=== PATIENT | female | born 1965 | race Asian ===

== ENCOUNTER 2019-05-16 10:29 | Emergency (ER) | payer OTHER ==
[~2019-05-16] VITALS: Ht 160 cm; Wt 108.9 kg
--- NOTE | 2019-05-16 10:30 | NUR ---
PATIENT CALLED, IN BATHROOM
--- OUTSIDE RECORDS SUMMARY | 2019-05-16 10:32 | XMS REPORT ---
Author Author Ham Souza Organization [employer] Address Unknown Phone Unavailable Care Team Providers Care Heating Equipment Repairer Name Role Phone Ham Souza CP Unavailable Allergies, Adverse Reactions, Alerts Substance Reaction Event Type N.K.D.A. Info Not Available Non Drug Allergy Problems Problem Type Condition Code Onset Dates Condition Status Problem Polyarthralgia M25.50 Active Problem Polyarthritis M13.0 Active Problem Neck pain M54.2 Active Assessment Polyarthritis M13.0 Active Assessment Polyarthralgia M25.50 Active Medications Medication Code System Code Instructions Start Date End Date Status Dosage Vitamin D3 ND 21222504728 2000 UNIT Orally Once a day Active 1 capsule Calcium ND 02462266782 600 MG Orally Twice a day Active 1 tablet with meals Meloxicam ND 55764964547 15 MG Orally Once a day with food Dec 07, 2017 April 06, 2018 Active 1 tablet Tylenol Extra Strength ND 56353303098 500 MG Orally every 6 hrs Active 2 tablets as needed Fish Oil ND 34543918785 1000 MG Orally Once a day Active 1 capsule Glucosamine HCl ND 50110727256 1500 MG Orally Once a day Active 1 tablet Levothyroxine Sodium ND 42700041893 100 MCG Orally Once a day Active 1 tablet on an empty stomach in the morning Lisinopril ND 99247594005 20 MG Orally Once a day Active 1 tablet Lisinopril-Hydrochlorothiazide ND 67457306729 20-25 MG Orally Once a day Active 1 tablet Multi Vitamin ND 95075290776 - Orally Once a day Active 1 tablet Vital Signs Date/Time: Dec 07, 2017 BMI 41.80 Index Weight 236 lbs Height 63 in Temperature 98.2 F Cardiac Monitoring Heart Rate 60 /min Blood Pressure Diastolic 88 mm Hg Blood Pressure Systolic 132 mm Hg Results No Known Results Summary Purpose [employer]ClinicalWorks Submission
--- OUTSIDE RECORDS SUMMARY | 2019-05-16 10:32 | XMS REPORT ---
Author Author [facility] Address Unknown Phone Unavailable Care Team Providers Care Wealth Management Manager Name Role Phone Unavailable Unavailable Payers Payer Name Policy Type Policy Number Effective Date Expiration Date Problems This patient has no known problems. Allergies, Adverse Reactions, Alerts This patient has no known allergies or adverse reactions. Medications This patient has no known medications.
--- OUTSIDE RECORDS SUMMARY | 2019-05-16 10:32 | XMS REPORT ---
Author Author Ham Souza Organization [employer] Address Unknown Phone Unavailable Care Team Providers Care Insurance Territory Manager Name Role Phone Ham Souza CP Unavailable Allergies No Known Allergies Problems Problem Type Condition Code Onset Dates Condition Status Problem Swelling of knee joint, left M25.462 Active Problem Neck pain M54.2 Active Problem Psoriasis L40.9 Active Problem Polyarthritis M13.0 Active Problem Polyarthralgia M25.50 Active Medications No Known Medications Results No Known Results Summary Purpose [employer] Submission
--- OUTSIDE RECORDS SUMMARY | 2019-05-16 10:32 | XMS REPORT ---
Author Author Ham Souza [facility] [employer] Address Unknown Phone Unavailable Care Team Providers Care Band Leader Name Role Phone Ham Souza Unavailable Allergies, Adverse Reactions, Alerts Substance Reaction Event Type N.K.D.A. Info Not Available Non Drug Allergy Problems Problem Type Condition Code Onset Dates Condition Status Assessment Psoriasis L40.9 Active Assessment Polyarthralgia M25.50 Active Assessment Neck pain M54.2 Active Assessment Swelling of knee joint, left M25.462 Active Problem Swelling of knee joint, left M25.462 Active Problem Neck pain M54.2 Active Problem Psoriasis L40.9 Active Assessment Polyarthritis M13.0 Active Problem Polyarthritis M13.0 Active Problem Polyarthralgia M25.50 Active Medications Medication Code System Code Instructions Start Date End Date Status Dosage Calcium ND 34016002435 600 MG Orally Twice a day Active 1 tablet with meals Vitamin D3 ND 15219135718 2000 UNIT Orally Once a day Active 1 capsule Tylenol Extra Strength ND 70842165696 500 MG Orally every 6 hrs Active 2 tablets as needed Meloxicam ND 83247108953 15 MG Orally Once a day with food Active 1 tablet Lisinopril-Hydrochlorothiazide ND 28675310400 20-25 MG Orally Once a day Active 1 tablet Allopurinol ND 82520805466 100 MG Orally Once a day Active 1 tablet Levothyroxine Sodium ND 41955331719 112 MCG Orally Once a day Active 1 tablet on an empty stomach in the morning Glucosamine HCl ND 19811087046 1500 MG Orally Once a day Active 1 tablet Multi Vitamin ND 04525727820 - Orally Once a day Active 1 tablet Fish Oil ND 04414082854 1000 MG Orally Once a day Active 1 capsule Cyclobenzaprine HCl ND 87648367315 5 MG Orally Three times a day Active 1 tablet as needed Lisinopril ND 39440377962 20 MG Orally Once a day Active 1 tablet Vital Signs Date/Time: Sep 17, 2018 BMI 41.27 Index Weight 233 lbs Height 63 in Temperature 98.6 F Cardiac Monitoring Heart Rate 68 /min Blood Pressure Diastolic 68 mm Hg Blood Pressure Systolic 112 mm Hg Results No Known Results Summary Purpose [employer]ClinicalWorks Submission
--- OUTSIDE RECORDS SUMMARY | 2019-05-16 10:32 | XMS REPORT ---
Author Ham Ham [facility] e[employer] Address Unknown Phone Unavailable Care Team Providers Care Striker Off Name Role Phone Ham Souza Unavailable Allergies, Adverse Reactions, Alerts Substance Reaction Event Type N.K.D.A. Info Not Available Non Drug Allergy Problems Problem Type Condition Code Onset Dates Condition Status Problem Polyarthralgia M25.50 Active Problem Polyarthritis M13.0 Active Problem Neck pain M54.2 Active Assessment Neck pain M54.2 Active Assessment Polyarthritis M13.0 Active Assessment Polyarthralgia M25.50 Active Medications Medication Code System Code Instructions Start Date End Date Status Dosage Allopurinol ND 63753424807 100 MG Orally Once a day Active 1 tablet Vitamin D3 ND 55094852286 2000 UNIT Orally Once a day Active 1 capsule Cyclobenzaprine HCl ND 87259732277 10 MG Orally q hs February 15, 2018 June 15, 2018 Active 1 tablet as needed Tylenol Extra Strength ND 17215058512 500 MG Orally every 6 hrs Active 2 tablets as needed Fish Oil ND 03381988506 1000 MG Orally Once a day Active 1 capsule Calcium ND 13863589649 600 MG Orally Twice a day Active 1 tablet with meals Glucosamine HCl ND 65277004866 1500 MG Orally Once a day Active 1 tablet Levothyroxine Sodium ND 01218042084 112 MCG Orally Once a day Active 1 tablet on an empty stomach in the morning Lisinopril ND 12690057527 20 MG Orally Once a day Active 1 tablet Lisinopril-Hydrochlorothiazide ND 89591891329 20-25 MG Orally Once a day Active 1 tablet Meloxicam ND 49488679563 15 MG Orally Once a day with food Active 1 tablet Multi Vitamin ND 33037997227 - Orally Once a day Active 1 tablet Vital Signs Date/Time: February 15, 2018 BMI 41.98 Index Weight 237 lbs Height 63 in Temperature 97.5 F Cardiac Monitoring Heart Rate 72 /min Blood Pressure Diastolic 80 mm Hg Blood Pressure Systolic 122 mm Hg Results No Known Results Summary Purpose [employer]ClinicalWorks Submission
--- OUTSIDE RECORDS SUMMARY | 2019-05-16 10:32 | XMS REPORT ---
Author Author Miguel Ángel Melissa Organization [employer] Address Unknown Phone Unavailable Care Team Providers Care Ski Lift Attendant Name Role Phone Miguel Ángel Melissa CP Unavailable Allergies No Known Allergies Problems Problem Type Condition Code Onset Dates Condition Status Problem Swelling of knee joint, left M25.462 Active Problem Neck pain M54.2 Active Problem Psoriasis L40.9 Active Problem Polyarthritis M13.0 Active Problem Polyarthralgia M25.50 Active Medications No Known Medications Results No Known Results Summary Purpose [employer]ClinicalWorks Submission
--- OUTSIDE RECORDS SUMMARY | 2019-05-16 10:32 | XMS REPORT ---
Author Author aHm Souza [facility] [place] [employer] Address Unknown Phone Unavailable Care Team Providers Care Medical Device Sales Representative Name Role Phone Ham Souza Unavailable Allergies, Adverse Reactions, Alerts Substance Reaction Event Type N.K.D.A. Info Not Available Non Drug Allergy Problems Problem Type Condition Code Onset Dates Condition Status Assessment Psoriasis L40.9 Active Assessment Polyarthralgia M25.50 Active Problem Swelling of knee joint, left M25.462 Active Problem Neck pain M54.2 Active Problem Psoriasis L40.9 Active Assessment Polyarthritis M13.0 Active Problem Polyarthritis M13.0 Active Problem Polyarthralgia M25.50 Active Medications Medication Code System Code Instructions Start Date End Date Status Dosage Levothyroxine Sodium ND 71327137263 112 MCG Orally Once a day Active 1 tablet on an empty stomach in the morning Vitamin D3 ND 59439752671 2000 UNIT Orally Once a day Active 1 capsule Multi Vitamin ND 74576794426 - Orally Once a day Active 1 tablet Eucrisa ND 76658487375 2 % Externally Twice a day Active 1 application to affected area Tumeric NDC 0 400 MG Orally Once a day Active 1 capsule Cyclobenzaprine HCl ND 93354972297 5 MG Orally Three times a day Active 1 tablet as needed Lisinopril ND 35048952662 20 MG Orally Once a day Active 1 tablet Fish Oil ND 85410250897 1000 MG Orally Once a day Active 1 capsule Calcium ND 23880796779 600 MG Orally Twice a day Active 1 tablet with meals Clobetasol Propionate ND 61410463867 0.05 % Externally Twice a day Active 1 application to affected area Meloxicam [facility] [address]-18 15 MG Orally prn Active 1 tablet Lisinopril-Hydrochlorothiazide ND 58539972541 20-25 MG Orally Once a day Active 1 tablet Vital Signs Date/Time: April 29, 2019 BMI 42.81 Index Weight 241.7 lbs Height 63 in Temperature 98.2 F Cardiac Monitoring Heart Rate 61 /min Blood Pressure Diastolic 74 mm Hg Blood Pressure Systolic 138 mm Hg Results No Known Results Summary Purpose eClinicalWorks Submission
--- OUTSIDE RECORDS SUMMARY | 2019-05-16 10:32 | XMS REPORT ---
Author Author Ham Souza Organization [employer] Address Unknown Phone Unavailable Care Team Providers Care Registered Dietitian Name Role Phone Ham Souza CP Unavailable Allergies No Known Allergies Problems Problem Type Condition Code Onset Dates Condition Status Problem Swelling of knee joint, left M25.462 Active Problem Neck pain M54.2 Active Problem Psoriasis L40.9 Active Assessment Swelling of knee joint, left M25.462 Active Problem Polyarthritis M13.0 Active Problem Polyarthralgia M25.50 Active Medications No Known Medications Results No Known Results Summary Purpose eClinicalWorks Submission
--- OUTSIDE RECORDS SUMMARY | 2019-05-16 10:32 | XMS REPORT | Continuity of Care Document ---
Author Author [facility] [employer] Address Unknown Phone Unavailable Care Team Providers Care Neurocritical Care Physician Name Role Phone [employer] Unavailable Unavailable Problems Problem Status Onset Date Classification Date Reported Comments Source Swelling of knee joint, left Active Problem 05/11/2019 Tim Souza Neck pain Active Problem 05/11/2019 Tim Souza Psoriasis Active Diagnosis 05/11/2019 Tim Souza Polyarthritis Active Diagnosis 05/11/2019 Tim Souza Polyarthralgia Active Diagnosis 05/11/2019 Tim Souza Medications Medication Details Route Status Patient Instructions Ordering Provider Order Date Source Cyclobenzaprine HCl 1 tablet as needed Orally Active 10 MG Orally q hs [place] 02/15/2018 Tim Souza Meloxicam 1 tablet Orally Active 15 MG Orally Once a day with food [place] 12/07/2017 Tim Souza Vitamin D3 1 capsule Orally Active 2000 UNIT Orally Once a day [place] Tim Souza Calcium 1 tablet with meals Orally Active 600 MG Orally Twice a day [place] Tim Souza Tylenol Extra Strength 2 tablets as needed Orally Active 500 MG Orally every 6 hrs [place] Tim Souza Fish Oil 1 capsule Orally Active 1000 MG Orally Once a day [place] Tim Souza Glucosamine HCl 1 tablet Orally Active 1500 MG Orally Once a day [place] Tim Souza Levothyroxine Sodium 1 tablet on an empty stomach in the morning Orally Active 112 MCG Orally Once a day [place] Tim Souza Lisinopril 1 tablet Orally Active 20 MG Orally Once a day [place] Tim Souza Lisinopril-Hydrochlorothiazide 1 tablet Orally Active 20-25 MG Orally Once a day [place] Tim Souza Multi Vitamin 1 tablet Orally Active - Orally Once a day [place] Tim Souza Allopurinol 1 tablet Orally Active 100 MG Orally Once a day [place] Tim Souza Meloxicam 1 tablet Orally Active 15 MG Orally Once a day with food [place] Tim Souza Cyclobenzaprine HCl 1 tablet as needed Orally Active 5 MG Orally Three times a day Souza Tim Souza Eucrisa 1 application to affected area Externally Active 2 % Externally Twice a day Souza Tim Souza Tumeric 1 capsule Orally Active 400 MG Orally Once a day Souza Tim Ramirezer Clobetasol Propionate 1 application to affected area Externally Active 0.05 % Externally Twice a day Souza Tim Ramirezer Meloxicam 1 tablet Orally Active 15 MG Orally prn Souza Tim Ramirezer Allergies, Adverse Reactions, Alerts Substance Category Reaction Severity Reaction type Status Date Reported Comments Source N.K.D.A. Adverse Reaction Info Not Available Adverse Reaction Active 04/29/2019 Tim Ramirezer Immunizations No Data Provided for This Section Results No Data Provided for This Section Pathology Reports No Data Provided for This Section Diagnostic Reports No Data Provided for This Section Consultation Notes No Data Provided for This Section Discharge Summaries No Data Provided for This Section History and Physicals No Data Provided for This Section Vital Signs Vital Sign Value Date Comments Source Weight 241.7 04/29/2019 Tim Souza Height 63 04/29/2019 Tim Souza Temperature Oral (F) 98.2 F 04/29/2019 Tim Souza Heart Rate 61 04/29/2019 Tim Souza Diastolic (mm Hg) 74 04/29/2019 Tim Souza Systolic (mm Hg) 138 04/29/2019 Tim Souza Weight 233 09/17/2018 Tim Souza Height 63 09/17/2018 Tim Souza Temperature Oral (F) 98.6 F 09/17/2018 Tim Souza Heart Rate 68 09/17/2018 Tim Souza Diastolic (mm Hg) 68 09/17/2018 Tim Souza Systolic (mm Hg) 112 09/17/2018 Tim Souza Weight 237 02/15/2018 Tim Souza Height 63 02/15/2018 Tim Souza Temperature Oral (F) 97.5 F 02/15/2018 Tim Souza Heart Rate 72 02/15/2018 Tim Souza Diastolic (mm Hg) 80 02/15/2018 Tim Souza Systolic (mm Hg) 122 02/15/2018 Tim Souza Weight 236 12/07/2017 Tim Souza Height 63 12/07/2017 Tim Souza Temperature Oral (F) 98.2 F 12/07/2017 Tim Souza Heart Rate 60 12/07/2017 Tim Souza Diastolic (mm Hg) 88 12/07/2017 Tim Souza Systolic (mm Hg) 132 12/07/2017 Tim Souza Encounters No Data Provided for This Section Procedures No Data Provided for This Section Assessment and Plan No Data Provided for This Section Plan of Care No Data Provided for This Section Social History No Data Provided for This Section Family History No Data Provided for This Section Advance Directives No Data Provided for This Section Functional Status No Data Provided for This Section
--- OUTSIDE RECORDS SUMMARY | 2019-05-16 10:32 | XMS REPORT ---
Author Author Ham Souza Organization [employer] Address Unknown Phone Unavailable Care Team Providers Care Ore Trimmer Name Role Phone Ham Souza CP Unavailable [...]
--- NOTE | 2019-05-16 13:16 | Diagnostic Imaging Report ---
Exam: Knee radiographs-3 views; left knee radiographs-3 views History: Status post fall. Comparison: None. Findings: Right knee: No evidence of acute fracture, malalignment, or soft tissue mildly. There are tricompartmental degenerative changes, moderate to severe in the patellofemoral compartment and mild in the medial and lateral compartments. Left knee: No evidence of acute fracture, malalignment, or soft tissue mildly. There are tricompartmental degenerative changes, moderate to severe in the patellofemoral compartment and mild in the medial and lateral compartments. Impression: No acute radiographic abnormality. Moderate to severe patellofemoral compartment predominant bilateral knee osteoarthritis. Signed by: Dr. Bob Barrett MD on 05/16/2019 1:13 PM
== END 2019-05-16 13:30 | disposition home or self-care (01) ==
LOC: ER 10:29
DX: M25.562 Pain in left knee (principal); M25.561 Pain in right knee; M25.512 Pain in left shoulder; M25.551 Pain in right hip; R26.2 Difficulty in walking, not elsewhere classified; W17.89XA Other fall from one level to another, initial encounter; I10 Essential (primary) hypertension; E11.9 Type 2 diabetes mellitus without complications
CPT/HCPCS: 99283

== ENCOUNTER 2020-05-31 22:47 | Emergency (ER) | payer OTHER ==
[~2020-05-31] VITALS: Ht 160 cm; Wt 108.9 kg
--- NOTE | 2020-05-31 22:54 | Emergency Department Note ---
History of Present Illnes History of Present Illness History of Present Illness This is a 54 year old female was walking down stairs with resultant R knee pain when she felt a "pop" . Arrival Mode: Car Onset (how long ago): day(s) (1) Radiation: Reports extremity Severity: mild Onset quality: sudden Duration (how long): hour(s) (1) Timing of current episode: constant Progression: unchanged Chronicity: new Context: Reports trauma/injury Relieving factors: immobilization, rest Exacerbating factors: movement Associated symptoms: Reports denies other symptoms Treatments prior to arrival: none Past Medical/Family History Physician Review I have reviewed the patient's past medical and family history. Any updates have been documented here. Past Medical History Recent Fever: No Clinical Suspicion of Infectio: No New/Unexplained Change in Ment: No Past Medical History: Hypertension, Diabetes, Osteoarthritis Other Medical History: PRE-DIABETES PSORIATIC ARTHRITIS Past Surgical History: Appendectomy Other Surgery: THYROIDECTOMY LUMPECTOMY BILAT CARAP TUNNEL Social History Smoking Cessation: Never Smoker Alcohol Use: None Any Illegal Drug Use: No Other Last Tetanus: OUT OF DATE Review of Systems Review of Systems Constitutional: Reports no symptoms EENTM: Reports no symptoms Cardiovascular: Reports no symptoms Respiratory: Reports no symptoms Gastrointestinal: Reports no symptoms Genitourinary: Reports no symptoms Musculoskeletal: Reports joint pain Integumentary: Reports no symptoms Neurological: Reports no symptoms Psychological: Reports no symptoms Endocrine: Reports no symptoms Hematological/Lymphatic: Reports no symptoms Physical Exam Related Data Allergies: Coded Allergies: No Known Allergies (Unverified , 05/16/19) Vital signs reviewed: Yes Physical Exam CONSTITUTIONAL Constitutional: Present obese HENT HENT: Present normocephalic, Present atraumatic, Present oropharynx clear/moist, Present nose normal HENT L/R: Present left ext ear normal, Present right ext ear normal EYES Eyes: Reports PERRL, Reports conjunctivae normal NECK Neck: Present ROM normal PULMONARY Pulmonary: Present effort normal, Present breath sounds normal CARDIOVASCULAR Cardiovascular: Present regular rhythm, Present heart sounds normal, Present capillary refill normal, Present normal rate GASTROINTESTINAL Abdominal: Present soft, Present nontender, Present bowel sounds normal GENITOURINARY Genitourinary: Present exam deferred SKIN Skin: Present warm, Present dry MUSCULOSKELETAL Musculoskeletal: Present tenderness (R knee) NEUROLOGICAL Neurological: Present alert, Present oriented x 3, Present no gross motor or sensory deficits PSYCHOLOGICAL Psychological: Present mood/affect normal, Present judgement normal Results Imaging Imaging results reviewed: Yes Impressions [place] [address] Patient Name: LENA STEEN MR #: [id number] : 1965 Age/Sex: 54/F Req #: [id number] Adm Physician: Ordered by: AMEE DUONG DO Report #: [id number] Location: ER Room/Bed: Procedure: [id number] DX/KNEE RIGHT THREE VIEWS Exam Date: 05/31/20 Exam Time: 2330 REPORT STATUS: Signed Exam: Right Knee Series. History: Sharp pain in right knee, no history of trauma Comparison: Right knee films 05/16/2019 Findings: 3 views of the right knee. There is normal bone mineralization. Negative for acute, displaced fracture or dislocation. Marked degenerative changes in the patellofemoral compartment, with presence of large osteophytes. Mild degenerative changes in the femorotibial compartments. No lytic or blastic lesion. Stable 7-8 mm well-corticated calcific density projecting lateral to the lateral femoral condyle. Small suprapatellar effusion. Impression: 1. No acute abnormalities 2. Marked degenerative changes in the patellofemoral compartment and mild degenerative changes in the femorotibial compartments. Signed by: Dr. Dov Esposito M.D. on 05/31/2020 11:59 PM Dictated By: DOV ESPOSITO MD [id number] Transcribed By: LOW on 05/31/20 7241 COPY TO: AMEE DUONG DO~ Assessment & Plan Medical Decision Making MDM Diff Dx : fx, dislocation, contusion, sprain, strain Assessment & Plan Final Impression: (1) Right knee pain Depart Disposition: HOME, SELF-CARE AMEE DUONG DO May 31, 2020 22:54
--- NOTE | 2020-06-01 00:03 | Diagnostic Imaging Report ---
Exam: Right Knee Series. History: Sharp pain in right knee, no history of trauma Comparison: Right knee films 05/16/2019 Findings: 3 views of the right knee. There is normal bone mineralization. Negative for acute, displaced fracture or dislocation. Marked degenerative changes in the patellofemoral compartment, with presence of large osteophytes. Mild degenerative changes in the femorotibial compartments. No lytic or blastic lesion. Stable 7-8 mm well-corticated calcific density projecting lateral to the lateral femoral condyle. Small suprapatellar effusion. Impression: 1. No acute abnormalities 2. Marked degenerative changes in the patellofemoral compartment and mild degenerative changes in the femorotibial compartments. Signed by: Dr. Saurabh Esposito M.D. on 05/31/2020 11:59 PM
== END 2020-06-01 00:19 | disposition home or self-care (01) ==
LOC: ER 23:15
DX: M25.561 Pain in right knee (principal); Y93.01 Activity, walking, marching and hiking; I10 Essential (primary) hypertension; L40.50 Arthropathic psoriasis, unspecified; E11.9 Type 2 diabetes mellitus without complications
CPT/HCPCS: 99283

== ENCOUNTER 2022-05-13 08:16 | Emergency (ER) | payer OTHER ==
[~2022-05-13] VITALS: Ht 162.6 cm; Wt 113.4 kg
[2022-05-13 08:33] LABS: BASOPHILS % 0.5 % (0.0-1.0); EOSINOPHILS % 0.5 % (0.0-6.0); HEMATOCRIT 47.5 % (34.2-44.1); HEMOGLOBIN 15.9 g/dL (12.0-16.0); LYMPHOCYTES # (AUTO) 2.4 (1.0-3.2); LYMPHOCYTES % 29.6 % (18.0-39.1); MEAN CORPUSCULAR HEMOGLOBIN 30.5 pg (28-32); MEAN CORPUSCULAR HGB CONC 33.5 g/dL (31-35); MEAN CORPUSCULAR VOLUME 91.2 fL (81-99); MONOCYTES # (AUTO) 0.3 (0.2-0.8); MONOCYTES % 3.5 % (4.4-11.3); NEUTROPHILS # (AUTO) 5.2 (2.1-6.9); NEUTROPHILS % 65.3 % (38.7-80.0); PLATELET COUNT 308 x10e3/uL (140-360); RED BLOOD COUNT 5.21 x10e6/uL (3.6-5.1); RED CELL DISTRIBUTION WIDTH 11.8 % (11.7-14.4)
[2022-05-13 08:54] LABS: ALANINE AMINOTRANSFERASE 26 IU/L (0-55); ALBUMIN 3.9 g/dL (3.5-5.0); ALBUMIN/GLOBULIN RATIO 0.8 (0.8-2.0); ALKALINE PHOSPHATASE 68 IU/L (40-150); ANION GAP 16.8 mmol/L (8-16); BLOOD UREA NITROGEN 9 mg/dL (7-26); BUN/CREATININE RATIO 11 (6-25); CALCIUM 9.3 mg/dL (8.4-10.2); CARBON DIOXIDE 29 mmol/L (22-29); CHLORIDE 100 mmol/L (98-107); CREATINE KINASE 57 IU/L (29-168); CREATININE, SERUM 0.83 mg/dL (0.57-1.11); GLUCOSE 141 mg/dL (74-118); POTASSIUM 3.8 mmol/L (3.5-5.1); SODIUM 142 mmol/L (136-145)
[2022-05-13 10:50] VITALS: BP 150/78
== END 2022-05-13 10:51 | disposition home or self-care (01) ==
LOC: ER 08:24
DX: R06.02 Shortness of breath (principal); U07.1 COVID-19; R05.9 Cough, unspecified; E11.65 Type 2 diabetes mellitus with hyperglycemia; I10 Essential (primary) hypertension; L40.50 Arthropathic psoriasis, unspecified
CPT/HCPCS: 0223U; 36415; 71045; 80053; 82550; 82553; 83880; 84484; 85025; 93005; 99284